=== PATIENT | female | born 1990 | race Caucasian/White ===

== ENCOUNTER → 2017-04-22 | Outpatient (CLI) | payer SELFPAY ==
[~2017-04-22] MED LIST: ALPR.5 PO; ALPR1 PO; AMPDEX10CR PO; Amphetamine Sal20 MG PO; BUPR100 PO; BUPR150ER PO; BUPR75 PO; Bactrim Ds Tab1 EACH PO; CEPH500 PO; CIPR500 PO; CYCL10 PO; Cipro500 MG PO; DICL75ER PO; DIVA500EC PO; FLUC150A PO; Flagyl500 MG PO; GABA300 PO; HYDACE10B PO; HYDACE5325 PO; IBUP600 PO; IMITREX; Inderal 20 mg T20 MG PO; Keflex500 MG PO; LAMO50 PO; LORA1 PO; METCAR750 PO; METPHE10 PO; NAPR500 PO; NITR100CA PO; NORCO; Naprosyn500 MG PO; Naproxen500 MG PO; Norco 5-325 Ta1 EACH PO; ONDA4ODT MM; ONDA8 PO; OXYC10TA19 PO; OXYC5 PO; PROM25; PROM25 PO; Phenergan25 M1 PO; Prilosec20 MG PO; Pyridium100 MG PO; Pyridium200 MG PO; RISP.25; RISPERIDONE PO; RITALIN; RXHYD5325 PO; Robaxin500 MG PO; SULTRIDS PO; SUMA6I SC; TRAM50 PO; ZOFRAN; ZOLP12.5 PO; ZOLP6.25 PO; ZOLPIDEM TART12.5 MG PO
== END ==
LOC: LAB EV 11:02
DX: J02.9 Acute pharyngitis, unspecified (principal)
CPT/HCPCS: 87070

== ENCOUNTER 2018-10-29 09:22 | Emergency (ER) | payer MEDICARE, OTHER ==
[~2018-10-29] VITALS: Ht 157.5 cm; Wt 68.0 kg
[2018-10-29] MEDS ORDERED: Robaxin-750750 MG PO (10:48)
[2018-10-29] MEDS ORDERED: Tylenol325 MG PO (10:48)
== END 2018-10-29 10:58 | disposition home or self-care (01) ==
LOC: ER 09:22
DX: R07.89 Other chest pain (principal); Z88.0 Allergy status to penicillin; Z88.5 Allergy status to narcotic agent; Z88.1 Allergy status to other antibiotic agents; Z88.2 Allergy status to sulfonamides
CPT/HCPCS: 99283